=== PATIENT | male | born 1995 | race Two or more races ===

== ENCOUNTER 2022-04-16 23:27 | Emergency (ER) | payer OTHER ==
[~2022-04-16] VITALS: Ht 180.3 cm; Wt 76.7 kg
[2022-04-17 00:03] VITALS: BP 124/65
--- NOTE | 2022-04-17 00:07 | NUR ---
TO LOBBY A/W BED AMBULATORY
--- NOTE | 2022-04-17 00:51 | NUR ---
PT TO9
--- NOTE | 2022-04-17 01:00 | NUR ---
Patient being evaluated by physician at bedside.
[2022-04-17] MEDS ORDERED: KETOROLAC 30 MG/ML VIAL IVP ONE (01:05)
[2022-04-17] MEDS ORDERED: fentaNYL citrate 0.05 MG/ML VIAL IVP ONE (01:05)
[2022-04-17] MEDS ORDERED: MORPHINE SULFATE 2 MG/ML SYR IVP STA (01:49)
[2022-04-17] MEDS ORDERED: PROPOFOL 200 MG/20 ML VIAL IV ONE (01:50)
[2022-04-17] MEDS ORDERED: MORPHINE SULFATE 2 MG/ML SYR ONE (01:53)
[2022-04-17] MEDS ORDERED: NACL 0.9% 1,000 ML IV ONE (01:55)
[2022-04-17] MEDS ORDERED: diphenhydrAMINE 50 MG/ML VIAL IVP ONE (02:10)
--- NOTE | 2022-04-17 02:10 | NUR ---
After morphine given, pt noted with red rash on left arm where IV site was located. ERMD made aware and orders for received
--- NOTE | 2022-04-17 02:25 | NUR ---
MD, RT, EMT, and RN at bedside at this time for procedural sedation
--- NOTE | 2022-04-17 02:33 | NUR ---
Procedure ended. Total of 125 mg propofol given by MD. TENORIO.
--- NOTE | 2022-04-17 02:35 | NUR ---
RT ASSISTED BEDSIDE DURING CONSCIOUS SEDATION
[2022-04-17] MEDS ORDERED: IBUP-2213 PO (02:42)
--- NOTE | 2022-04-17 03:00 | NUR ---
Alert awake and responsive at this time. No s/s discomfort. VSS
[2022-04-17 03:44] VITALS: BP 114/74
--- NOTE | 2022-04-17 03:44 | NUR ---
Pt was picked up and taken home by friend
--- NOTE | 2022-04-17 03:44 | NUR ---
Patient discharged with v/s stable. Written and verbal after care instructions given and explained. Patient verbalized understanding. Ambulatory with steady gait. All questions addressed prior to discharge. Advised to follow up with PMD.
--- NOTE | 2022-04-19 16:22 | NUR ---
LATE ENTRY -- CONFIRMED WITH NURSE, NS INFUSION COMPLETED AT 0340 04/17/22
== END 2022-04-17 03:44 | disposition home or self-care (01) ==
LOC: MED 23:27
DX: S43.014A Anterior dislocation of right humerus, initial encounter (principal); Z79.1 Long term (current) use of non-steroidal anti-inflammatories (NSAID); Z88.5 Allergy status to narcotic agent; X58.XXXA Exposure to other specified factors, initial encounter; Y93.11 Activity, swimming; Y92.34 Swimming pool (public) as the place of occurrence of the external cause; Y99.8 Other external cause status
CPT/HCPCS: 23650; 73030; 96361; 96374; 96375; 99152; 99285; J1200; J1885; J2270; J2704; J3010; J7030; Q0092